=== PATIENT | female | born 1970 | race Caucasian/White ===

== ENCOUNTER → 2019-02-03 07:44 | Outpatient (CLI) | payer BC, SELFPAY ==
--- NOTE | 2019-02-03 | DI.MG.S_ITS ---
BILATERAL DIGITAL SCREENING MAMMOGRAM 3D/2D WITH CAD: 02/03/2019 CLINICAL: Routine screening. Comparison is made to exam dated: 10/28/2010 [facility]. There are scattered fibroglandular elements in both breasts. Current study was also evaluated with a Computer Aided Detection (CAD) system. No significant masses, calcifications, or other findings are seen in either breast. There has been no significant interval change. IMPRESSION: NEGATIVE There is no mammographic evidence of malignancy. A 1 year screening mammogram is recommended. This exam was interpreted at Station ID: [id number]. NOTE: For mammograms, a report in lay terms will be sent to the patient. Approximately 15% of breast malignancies will not be visualized mammographically. In the management of a palpable breast mass, a negative mammogram must not discourage biopsy of a clinically suspicious lesion. Electronically Signed By: Howard hardy/pool:02/03/2019 12:56:09 letter sent: Normal Exam ACR BI-RADS Category 1: Negative 3341F
== END ==
PROVIDERS: Family Provider Family Medicine; PCP Family Medicine; Visit Provider Family Medicine
DX: Z12.31 Encounter for screening mammogram for malignant neoplasm of breast (principal)
CPT/HCPCS: 77063; 77067

== ENCOUNTER → 2019-09-01 10:41 | Outpatient (CLI) | payer BC, SELFPAY ==
--- NOTE | 2019-09-01 | DI.RAD.S_ITS ---
PROCEDURE: XR FOOT RT MIN 3V INDICATIONS: RIGHT FOOT PAIN TECHNIQUE: 3 views of the foot were acquired. COMPARISON: None. FINDINGS: Bones: No fractures or dislocations. Prominent plantar calcaneal spur. Small Achilles enthesophyte. No suspicious bony lesions. Soft tissues: No tibiotalar joint effusion. Achilles tendon appears normal. IMPRESSION: No fracture or dislocation. Prominent calcaneal spur. Dictated by: Gian Nava M.D. on 09/01/2019 at 12:53 Approved by: Gian Nava M.D. on 09/01/2019 at 12:55
== END ==
PROVIDERS: PCP Family Medicine; Visit Provider Family Medicine
DX: M79.671 Pain in right foot (principal); M77.31 Calcaneal spur, right foot
CPT/HCPCS: 73630

== ENCOUNTER → 2020-05-05 15:19 | Outpatient (CLI) | payer BC, SELFPAY ==
[2020-05-05 16:52] LABS: Add Manual Diff / Slide Review NO; Basophils Absolute Auto 100 /uL (0-100); Eosinophils Absolute Auto 300 /uL (0-450); Eosinophils Percent Auto 2.9 % (2-4); Hemoglobin 16.2 g/dL (12.0-16.0); Lymphocytes Absolute Auto 3300 /uL (1100-4500); Lymphocytes Percent Auto 32.2 % (25-40); Mean Corpuscular HGB Conc 35.3 % (30-36); Mean Corpuscular Hemoglobin 31.3 PG (26-34); Mean Corpuscular Volume 88.9 fL (80-100); Monocytes Absolute Auto 700 /uL (0-900); Monocytes Percent Auto 6.9 % (3-14); Neutrophils Absolute Auto 5800 /uL (1500-7000); Platelet Count 313 X10^3/uL (150-400); Red Blood Cell Count 5.18 X10^6/uL (4.0-5.2); Red Cell Distribution Width 13.3 % (11.6-14.8); White Blood Cell Count 10.2 X10^3/uL (4.5-11.0)
[2020-05-05 17:18] LABS: Erythrocyte Sedimentation Rate 4 MM/HR (0-20)
[2020-05-05 17:22] LABS: Alanine Aminotransferase 23 IU/L (<35); Albumin 4.8 g/dL (3.5-5.0); Albumin Globulin Ratio 1.7 (1.0-2.8); Alkaline Phosphatase 84 U/L (38-126); Aspartate Aminotransferase 29 IU/L (14-36); BUN Creatinine Ratio 18.1 (6-22); Bilirubin Total 0.7 mg/dL (0.2-1.3); Blood Urea Nitrogen 19 mg/dL (7-17); C-Reactive Protein Quant 1.2 mg/dL (<1.0); Calcium 10.4 mg/dL (8.4-10.2); Carbon Dioxide 22 mmol/L (22-32); Chloride 104 mmol/L (98-107); Estimated Glomerular Filt Rate 55.5 mL/min (>60); Globulin 2.9 g/dL (1.7-4.1); Glucose 91 mg/dL (70-100); HEMOLYSIS < 15 (0-50); Potassium 4.3 mmol/L (3.4-5.1); Sodium 138 mmol/L (137-145); Total Protein 7.7 g/dL (6.3-8.2)
== END ==
PROVIDERS: PCP Family Medicine; Referring Provider Family Medicine; Visit Provider Family Medicine
DX: R10.9 Unspecified abdominal pain (principal)
CPT/HCPCS: 36415; 80053; 85025; 85651; 86140

== ENCOUNTER → 2021-03-14 10:56 | Outpatient (CLI) | payer BC, SELFPAY ==
--- NOTE | 2021-03-14 10:57 | DI.MG.S_ITS ---
BILATERAL DIGITAL SCREENING MAMMOGRAM 3D/2D WITH CAD: 03/14/2021 CLINICAL: Routine screening. Comparison is made to exams dated: 02/03/2019 mammogram and 10/28/2010 mammogram - [facility]. There are scattered fibroglandular elements in both breasts. Current study was also evaluated with a Computer Aided Detection (CAD) system. No significant masses, calcifications, or other findings are seen in either breast. There has been no significant interval change. IMPRESSION: NEGATIVE There is no mammographic evidence of malignancy. A 1 year screening mammogram is recommended. This exam was interpreted at Station ID: [id number]. NOTE: For mammograms, a report in lay terms will be sent to the patient. Approximately 15% of breast malignancies will not be visualized mammographically. In the management of a palpable breast mass, a negative mammogram must not discourage biopsy of a clinically suspicious lesion. Electronically Signed By: Shelby lorenz/pool:03/14/2021 19:27:25 letter sent: Normal Exam ACR BI-RADS Category 1: Negative 3341F
== END ==
PROVIDERS: PCP Family Medicine; Referring Provider Family Medicine; Visit Provider Family Medicine
DX: Z12.31 Encounter for screening mammogram for malignant neoplasm of breast (principal)
CPT/HCPCS: 77063; 77067

== ENCOUNTER 2021-04-28 16:27 | Emergency (ER) | payer BC, SELFPAY ==
[2021-04-28 16:31] VITALS: BP 149/86; PULSE 96; RESP 15; TEMP 36.4; O2SAT 94; BMI 40.0
--- NOTE | 2021-04-28 16:39 | ED.GENADULT ---
HPI - General Adult General Chief complaint: Abdominal Pain Stated complaint: sent for CT Time Seen by Provider: 04/28/21 16:30 Related Data Allergies Allergy/AdvReac Type Severity Reaction Status Date / Time STEROIDS Allergy Mild BY 4TH Uncoded 02/27/18 12:59 DAY, BECAME VERY ANGRY AND VERBAL BRAZIL NUT Allergy Unknown MOUTH Uncoded 02/27/18 12:59 ITCHES/SWELLING WALNUTS Allergy Unknown MOUTH Uncoded 02/27/18 12:59 ITCHES/SWELLING Patient History Medical History (Updated 04/28/21 @ 17:14 by Faye Gregory MD) Acid reflux History of ovarian cyst Hypertension Hypothyroidism (acquired) Surgical History History of endometrial ablation Social History Smoking Status: Unknown if ever smoked Exam Initial Vital Signs Initial Vital Signs: Vital Signs Temperature 97.6 F 04/28/21 16:31 Pulse Rate 96 H 04/28/21 16:31 Respiratory Rate 15 04/28/21 16:31 Blood Pressure 149/86 H 04/28/21 16:31 Pulse Oximetry 94 04/28/21 16:31 Course Orders Ordered: ED Orders 04/28/21 16:42 EKG-12 Lead Stat 04/28/21 17:05 Complete Blood Count AUTO DIFF Stat Comprehensive Metabolic Panel Stat Lipase Stat 04/28/21 18:03 CT abdomen pelvis w con Stat Vital Signs Vital signs: Vital Signs - 8 hr 04/28/21 16:31 Temperature 97.6 F Pulse Rate 96 H Respiratory Rate 15 Blood Pressure 149/86 H Pulse Oximetry 94 Medical Decision Making Lab Data Result diagrams: 04/28/21 17:05 04/28/21 17:05 Labs: Lab Results 04/28/21 04/28/21 Range/Units 17:05 17:05 WBC 10.3 (4.5-11.0) X10^3/uL RBC 5.18 (4.0-5.2) X10^6/uL Hgb 15.9 (12.0-16.0) g/dL Hct 46.7 H (36-46) % MCV 90.3 (80-100) fL MCH 30.8 (26-34) PG MCHC 34.1 (30-36) % RDW 13.6 (11.6-14.8) % Plt Count 320 (150-400) X10^3/uL Neut % (Auto) 60.6 (50-75) % Lymph % (Auto) 27.3 (25-40) % Sabine % (Auto) 7.7 (3-14) % Eos % (Auto) 3.2 (2-4) % Baso % (Auto) 1.2 (0-2) % Neut # (Auto) 6200 (8706-4932) /uL Lymph # (Auto) 2800 (8144-7508) /uL Sabine # (Auto) 800 (0-900) /uL Eos # (Auto) 300 (0-450) /uL Baso # (Auto) 100 (0-100) /uL Sodium 138 (137-145) mmol/L Potassium 4.0 (3.4-5.1) mmol/L Chloride 104 (98-107) mmol/L Carbon Dioxide 25 (22-32) mmol/L BUN 17 (7-17) mg/dL Creatinine 1.01 (0.52-1.04) mg/dL Estimated GFR 57.8 L (>60) mL/min BUN/Creatinine Ratio 16.8 (6-22) Glucose 101 H (70-100) mg/dL Calcium 10.1 (8.4-10.2) mg/dL Total Bilirubin 1.2 (0.2-1.3) mg/dL AST 37 H (14-36) IU/L ALT 40 H (<35) IU/L Alkaline Phosphatase 81 (38-126) U/L Total Protein 7.9 (6.3-8.2) g/dL Albumin 4.5 (3.5-5.0) g/dL Globulin 3.4 (1.7-4.1) g/dL Albumin/Globulin Ratio 1.3 (1.0-2.8) Lipase 45 (23-300) U/L
--- NOTE | 2021-04-28 16:40 | ED.GENADULT ---
HPI - General Adult General Chief complaint: Abdominal Pain Stated complaint: sent for CT Time Seen by Provider: 04/28/21 16:30 Related Data Allergies Allergy/AdvReac Type Severity Reaction Status Date / Time STEROIDS Allergy Mild BY 4TH Uncoded 02/27/18 12:59 DAY, BECAME VERY ANGRY AND VERBAL BRAZIL NUT Allergy Unknown MOUTH Uncoded 02/27/18 12:59 ITCHES/SWELLING WALNUTS Allergy Unknown MOUTH Uncoded 02/27/18 12:59 ITCHES/SWELLING Patient History Social History Smoking Status: Unknown if ever smoked
--- NOTE | 2021-04-28 17:09 | ED_ITS ---
HPI - General Adult General Chief complaint: Abdominal Pain Stated complaint: sent for CT Time Seen by Provider: 04/28/21 16:30 Source: patient Mode of arrival: Ambulatory Limitations: no limitations History of Present Illness HPI narrative: 51-year-old woman with a history of hypertension presents with right lower quadrant pain that is been intermittently present the last month, getting worse. She notes that she has had ovarian cysts previously and a right lower quadrant ?bleeding cyst? that was removed and had cause similar pain. All of these cytometry technologist issues were over 10 years ago. She notes that the pain seemed to be worse yesterday, she slept well and then when she got up this morning she was unable to stand up straight due to the pain. She was seen by her primary care physician office and abdominal exam was significant enough that it was felt that ER evaluation was appropriate. She describes no vomiting or diarrhea. She has no chest pain, dyspnea, palpitations, cough, fevers. Related Data Allergies Allergy/AdvReac Type Severity Reaction Status Date / Time STEROIDS Allergy Mild BY 4TH Uncoded 02/27/18 12:59 DAY, BECAME VERY ANGRY AND VERBAL BRAZIL NUT Allergy Unknown MOUTH Uncoded 02/27/18 12:59 ITCHES/SWELLING WALNUTS Allergy Unknown MOUTH Uncoded 02/27/18 12:59 ITCHES/SWELLING Review of Systems Review of Systems Narrative: Remainder of complete review of systems is otherwise unremarkable e xcept for that included in the HPI. Patient History Medical History (Updated 04/28/21 @ 19:04 by Faye Gregory MD) Acid reflux History of ovarian cyst Hypertension Hypothyroidism (acquired) Surgical History History of endometrial ablation Social History Smoking Status: Unknown if ever smoked Smoking Status: Unknown if ever smoked alcohol intake frequency: holidays/special occasions only Substance Use Type: does not use Exam Narrative Exam Narrative: General: Healthy appearing, in no acute distress. Able to give a complete and coherent history. Well-nourished well-developed HEENT: Moist mucous membranes, normal sclera with reactive pupils, Respiratory: Lungs are clear to auscultation, no wheezing no rales no rhonchi. Full and symmetrical air movement Cardiac: Regular rate and rhythm no murmurs no bruits Abdomen: Soft, moderate right lower quadrant tenderness without rebound or guarding good bowel tones, no flank pain Skin: Warm and dry, no rashes Neurologic: Grossly neurologically intact with no obvious asymmetries or abnormalities Extremities: No trauma, well perfused Psych: Cooperative, appropriate insight and affect Initial Vital Signs Initial Vital Signs: Vital Signs Temperature 97.6 F 04/28/21 16:31 Pulse Rate 96 H 04/28/21 16:31 Respiratory Rate 15 04/28/21 16:31 Blood Pressure 149/86 H 04/28/21 16:31 Pulse Oximetry 94 04/28/21 16:31 Course Orders Ordered: ED Orders 04/28/21 16:42 EKG-12 Lead Stat 04/28/21 17:05 Complete Blood Count AUTO DIFF Stat Comprehensive Metabolic Panel Stat Lipase Stat 04/28/21 18:03 CT abdomen pelvis w con Stat Vital Signs Vital signs: Vital Signs - 8 hr 04/28/21 16:31 Temperature 97.6 F Pulse Rate 96 H Respiratory Rate 15 Blood Pressure 149/86 H Pulse Oximetry 94 Medical Decision Making Medical Records Medical records reviewed: Yes I reviewed the patient's medical records. Lab Data Lab results reviewed: Yes I reviewed the patient's lab results. Result diagrams: 04/28/21 17:05 04/28/21 17:05 Labs: Lab Results 04/28/21 04/28/21 Range/Units 17:05 17:05 WBC 10.3 (4.5-11.0) X10^3/uL RBC 5.18 (4.0-5.2) X10^6/uL Hgb 15.9 (12.0-16.0) g/dL Hct 46.7 H (36-46) % MCV 90.3 (80-100) fL MCH 30.8 (26-34) PG MCHC 34.1 (30-36) % RDW 13.6 (11.6-14.8) % Plt Count 320 (150-400) X10^3/uL Neut % (Auto) 60.6 (50-75) % Lymph % (Auto) 27.3 (25-40) % Winn % (Auto) 7.7 (3-14) % Eos % (Auto) 3.2 (2-4) % Baso % (Auto) 1.2 (0-2) % Neut # (Auto) 6200 (1237-9597) /uL Lymph # (Auto) 2800 (9864-9717) /uL Winn # (Auto) 800 (0-900) /uL Eos # (Auto) 300 (0-450) /uL Baso # (Auto) 100 (0-100) /uL Sodium 138 (137-145) mmol/L Potassium 4.0 (3.4-5.1) mmol/L Chloride 104 (98-107) mmol/L Carbon Dioxide 25 (22-32) mmol/L BUN 17 (7-17) mg/dL Creatinine 1.01 (0.52-1.04) mg/dL Estimated GFR 57.8 L (>60) mL/min BUN/Creatinine Ratio 16.8 (6-22) Glucose 101 H (70-100) mg/dL Calcium 10.1 (8.4-10.2) mg/dL Total Bilirubin 1.2 (0.2-1.3) mg/dL AST 37 H (14-36) IU/L ALT 40 H (<35) IU/L Alkaline Phosphatase 81 (38-126) U/L Total Protein 7.9 (6.3-8.2) g/dL Albumin 4.5 (3.5-5.0) g/dL Globulin 3.4 (1.7-4.1) g/dL Albumin/Globulin Ratio 1.3 (1.0-2.8) Lipase 45 (23-300) U/L Imaging Data CT scan - abdomen/pelvis: Radiologist's Impression: FINDINGS: Lower thorax: The lung bases are clear. Heart size normal. No hiatal hernia. Liver: The liver is diffusely decreased in attenuation without focal mass lesion. Biliary system: No calcified cholelithiasis or pericholecystic inflammation. No intra or extrahepatic bile duct dilatation. Pancreas: Unremarkable without mass or inflammation evident. Spleen: Normal in size and density. Adrenals: Normal morphology and density. Reproductive system: Unremarkable as visualized. Urinary system: Normal renal size and attenuation. Small subcentimeter hypoden se in the left renal cortex likely reflects simple cyst. No renal calculi, hydronephrosis, or solid mass present. Urinary bladder unremarkable. Gastrointestinal system: The bowel appears unremarkable with no evidence of bowel obstruction or inflammation. The stomach appears unremarkable. Appendix: Normal appendix identified. No evidence of appendicitis. Peritoneal spaces: No mesenteric or retroperitoneal adenopathy. No free air. No free fluid. Vasculature: The IVC, aorta and iliac vasculature are unremarkable. Musculoskeletal: Normal bone mineralization. No acute fractures. Abdominal wall intact without evidence of ventral or inguinal hernias. IMPRESSION: 1. No acute CT abdomen or pelvic findings. Normal appendix. 2. Hepatic fatty infiltration Dictated by: Zen Dupree M.D. on 04/28/2021 at 17:31 ECG Data Attestation: I personally reviewed and interpreted this ECG as follows: Interpretation: Sinus rhythm at a rate of 91 Normal axis, normal intervals No acute ischemic changes MDM Narrative Medical decision making narrative: 51-year-old woman presents with a month of increasing abdominal pain and over the last week has gotten worse and is now localizing to the right lower quadrant. Labs are reassuring and CT scan of the abdomen does not reveal any acute findings to suggest an etiology for her pain. Specifically she does not have appendicitis, diverticulitis, pancreatitis, acute cholecystitis, pyelonephritis or any other source of infection. Review of the scan itself does not suggest significant stool loading for constipation to be a cause of her pain either. At this point she does not have a surgical abdomen and she is safe for home discharge. Will ask for follow-up with her primary care physician Discharge Plan Departure Patient Disposition: Home Clinical Impression: Abdominal pain Qualifiers: Abdominal location: right lower quadrant Qualified Code(s): R10.31 - Right lower quadrant pain Instructions: DI for Abdominal Pain-Adult Activity Restrictions/Additional Instructions: Thank you for coming in today Your lab work was very reassuring. There is no evidence of infection, kidney failure or liver issues. CT scan of your abdomen was equally reassuring. You do not have appendicitis nor any other surgical finding that would require consultation her hospitalization today. I would encourage you to schedule a follow-up appointment with your primary care physician to continue investigating what might be causing this intermittent abdominal pain. If things worsen significantly, please feel free to return to the ER. Referrals: Gustavo Barbour MD [Primary Care Provider] -
[2021-04-28 17:17] LABS: Add Manual Diff / Slide Review NO; Basophils Absolute Auto 100 /uL (0-100); Basophils Percent Auto 1.2 % (0-2); Eosinophils Absolute Auto 300 /uL (0-450); Eosinophils Percent Auto 3.2 % (2-4); Hematocrit 46.7 % (36-46); Hemoglobin 15.9 g/dL (12.0-16.0); Lymphocytes Absolute Auto 2800 /uL (1100-4500); Lymphocytes Percent Auto 27.3 % (25-40); Mean Corpuscular HGB Conc 34.1 % (30-36); Mean Corpuscular Hemoglobin 30.8 PG (26-34); Mean Corpuscular Volume 90.3 fL (80-100); Monocytes Absolute Auto 800 /uL (0-900); Monocytes Percent Auto 7.7 % (3-14); Neutrophils Absolute Auto 6200 /uL (1500-7000); Neutrophils Percent Auto 60.6 % (50-75); Platelet Count 320 X10^3/uL (150-400); Red Blood Cell Count 5.18 X10^6/uL (4.0-5.2); Red Cell Distribution Width 13.6 % (11.6-14.8); White Blood Cell Count 10.3 X10^3/uL (4.5-11.0)
[2021-04-28 17:30] LABS: Alanine Aminotransferase 40 IU/L (<35); Albumin 4.5 g/dL (3.5-5.0); Albumin Globulin Ratio 1.3 (1.0-2.8); Alkaline Phosphatase 81 U/L (38-126); Aspartate Aminotransferase 37 IU/L (14-36); BUN Creatinine Ratio 16.8 (6-22); Bilirubin Total 1.2 mg/dL (0.2-1.3); Blood Urea Nitrogen 17 mg/dL (7-17); Calcium 10.1 mg/dL (8.4-10.2); Carbon Dioxide 25 mmol/L (22-32); Chloride 104 mmol/L (98-107); Estimated Glomerular Filt Rate 57.8 mL/min (>60); Globulin 3.4 g/dL (1.7-4.1); Glucose 101 mg/dL (70-100); HEMOLYSIS < 15 (0-50); Lipase 45 U/L (23-300); Sodium 138 mmol/L (137-145); Total Protein 7.9 g/dL (6.3-8.2)
--- NOTE | 2021-04-28 18:03 | DI.CT.S_ITS ---
PROCEDURE: CT ABDOMEN PELVIS W CON INDICATIONS: RLQ increasing over 1 week with general pain for 1 month TECHNIQUE: After the administration of intravenous contrast, 5 mm thick sections acquired from the diaphragm to the symphysis. 5 mm coronal and sagittal reformats were acquired. For radiation dose reduction, the following was used: automated exposure control, adjustment of mA and/or kV according to patient size. COMPARISON: None. FINDINGS: Lower thorax: The lung bases are clear. Heart size normal. No hiatal hernia. Liver: The liver is diffusely decreased in attenuation without focal mass lesion. Biliary system: No calcified cholelithiasis or pericholecystic inflammation. No intra or extrahepatic bile duct dilatation. Pancreas: Unremarkable without mass or inflammation evident. Spleen: Normal in size and density. Adrenals: Normal morphology and density. Reproductive system: Unremarkable as visualized. Urinary system: Normal renal size and attenuation. Small subcentimeter hypodense in the left renal cortex likely reflects simple cyst. No renal calculi, hydronephrosis, or solid mass present. Urinary bladder unremarkable. Gastrointestinal system: The bowel appears unremarkable with no evidence of bowel obstruction or inflammation. The stomach appears unremarkable. Appendix: Normal appendix identified. No evidence of appendicitis. Peritoneal spaces: No mesenteric or retroperitoneal adenopathy. No free air. No free fluid. Vasculature: The IVC, aorta and iliac vasculature are unremarkable. Musculoskeletal: Normal bone mineralization. No acute fractures. Abdominal wall intact without evidence of ventral or inguinal hernias. IMPRESSION: 1. No acute CT abdomen or pelvic findings. Normal appendix. 2. Hepatic fatty infiltration Dictated by: Zen Dupree M.D. on 04/28/2021 at 17:31 Approved by: Zen Dupree M.D. on 04/28/2021 at 17:40
[2021-04-28 19:18] VITALS: BP 121/69; PULSE 85; RESP 18; O2SAT 96
== END 2021-04-28 19:19 | disposition home or self-care (01) ==
PROVIDERS: Emergency Provider Emergency Medicine; PCP Family Medicine
DX: R10.31 Right lower quadrant pain (principal)
CPT/HCPCS: 36415; 74177; 80053; 83690; 85025; 93005; 99284; Q9967

== ENCOUNTER → 2021-06-21 13:14 | Outpatient (CLI) | payer BC, SELFPAY ==
--- NOTE | 2021-06-21 13:18 | DI.RAD.S_ITS ---
PROCEDURE: XR ANKLE RT MIN 3V INDICATIONS: hurt TECHNIQUE: 3 views of the ankle were acquired. COMPARISON: None. FINDINGS: Bones: No fractures or dislocations. Ankle mortise is normally aligned. No suspicious bony lesions. Soft tissues: No tibiotalar joint effusion. Achilles tendon appears normal. IMPRESSION: No acute fracture. No osseous lesion. If symptoms and/or clinical suspicion for pathology persist, further assessment with repeat, or advanced imaging (e.g., CT, MRI, or bone scan) may be helpful for further assessment. Dictated by: Brunilda Pond M.D. on 06/21/2021 at 13:36 Approved by: Brunilda Pond M.D. on 06/21/2021 at 13:38
--- NOTE | 2021-06-21 13:18 | DI.RAD.S_ITS ---
PROCEDURE: XR FOOT RT MIN 3V INDICATIONS: swollen foot TECHNIQUE: 3 views of the foot were acquired. COMPARISON: [facility], , XR FOOT RT MIN 3V, 09/01/2019, 11:55. FINDINGS: Bones: No fractures or dislocations. No suspicious bony lesions. Soft tissues: No tibiotalar joint effusion. Achilles tendon appears normal. IMPRESSION: No acute fracture. No osseous lesion. If symptoms and/or clinical suspicion for pathology persist, further assessment with repeat, or advanced imaging (e.g., CT, MRI, or bone scan) may be helpful for further assessment. Dictated by: Brunilda Pond M.D. on 06/21/2021 at 13:38 Approved by: Brunilda Pond M.D. on 06/21/2021 at 13:38
== END ==
PROVIDERS: PCP Family Medicine; Referring Provider Physician Assistant; Visit Provider Physician Assistant
DX: M25.471 Effusion, right ankle (principal); M79.89 Other specified soft tissue disorders
CPT/HCPCS: 73610; 73630

== ENCOUNTER → 2021-07-14 06:37 | Outpatient (CLI) | payer BC, SELFPAY ==
--- NOTE | 2021-07-14 | DI.MRI.S_ITS ---
PROCEDURE: MR ANKLE RT WO CON INDICATIONS: Pain in right ankle and joints of right foot TECHNIQUE: Noncontrast sagittal T1 spin echo and T2 fast spin echo with fat saturation, axial proton density fast spin echo and T2 fast spin echo with fat saturation, coronal T1 spin echo and T2 fast spin echo with fat saturation through the ankle/hindfoot. COMPARISON: None. FINDINGS: Bones and joints: Bones: No marrow contusions or fractures. Scattered degenerative subchondral sclerosis and spurring. Coalitions: No hindfoot coalitions. Talar dome: No osteochondral injuries of the talar dome. Other: Large tibiotalar and subtalar joint effusion. Medial structures: Posterior tibialis: Intact. [id number] tenosynovitis. Flexor digitorum longus: Intact. Hnsk-pr-[id number] tenosynovitis. Flexor hallucis longus: Intact. Posterior tibial neurovascular bundle: Normal. Deltoid ligament complex: Intact. Spring ligament: Intact. Lateral structures: Anterior talofibular ligament: Mild thickening suggestive of age-indeterminate low-grade sprain. Calcaneofibular ligament: Not well seen raising possibility of age-indeterminate sprain Posterior talofibular ligament: Intact. Anterior tibiofibular ligament: Intact. Posterior tibiofibular ligament: Intact. Intermalleolar ligament: Intact. Tibiofibular syndesmosis: Normal. Peroneus longus: Intact. Moderate tenosynovitis. Peroneus brevis: Intact. Moderate tenosynovitis. Bony peroneal tubercle and retrotrochlear prominence: Normal. Sinus tarsi: Normal. Anterior structures: Tibialis anterior: Intact. Extensor hallucis longus: Intact. Extensor digitorum longus: Mild tenosynovitis otherwise intact. Dorsal talonavicular ligament: Thickened appearance in keeping with degeneration/sprain. Posterior and plantar structures: Achilles tendon: Grossly intact appearance although there is adjacent fluid/edema of unclear etiology although raises the possibility of low-grade strain. Plantar fascia: Moderate to severe medial band plantar fasciitis with associated calcaneal spurring Muscles: No abductor digiti quinti muscle atrophy to suggest Costa neuropathy. Possible incidental plantar subcutaneous lipoma measuring 5 mm seen on image 1/8. IMPRESSION: Moderate to severe medial band plantar fasciitis. Age-indeterminate sprain of the anterior talofibular and calcaneofibular ligament. Large tibiotalar joint effusion. Diffuse tenosynovitis as above. Dictated by: Jorge Astudillo M.D. on 07/14/2021 at 9:18 Approved by: Jorge Astudillo M.D. on 07/14/2021 at 9:50
== END ==
PROVIDERS: PCP Family Medicine; Referring Provider Family Medicine; Visit Provider Family Medicine
DX: M25.571 Pain in right ankle and joints of right foot (principal); M72.2 Plantar fascial fibromatosis; S93.411A Sprain of calcaneofibular ligament of right ankle, initial encounter; S93.491A Sprain of other ligament of right ankle, initial encounter; M25.471 Effusion, right ankle; M65.871 Other synovitis and tenosynovitis, right ankle and foot
CPT/HCPCS: 73721

== ENCOUNTER → 2024-02-04 13:25 | Outpatient (CLI) | payer BC, SELFPAY ==
--- NOTE | 2024-02-04 13:26 | DI.RAD.S_ITS ---
PROCEDURE: XR KNEE RT 3V INDICATIONS: right knee cellulitis, no trauma TECHNIQUE: 3 views of the knee were acquired. COMPARISON: None. FINDINGS: Bones: No fractures or dislocations. No suspicious bony lesions. Soft tissues: No joint effusion. No suspicious soft tissue calcifications. IMPRESSION: No acute bony abnormality or significant effusion. Dictated by: Cait Ricci M.D. on 02/04/2024 at 14:31 Approved by: Cait Ricci M.D. on 02/04/2024 at 14:31
== END ==
PROVIDERS: PCP Family Medicine; Referring Provider Physician Assistant Medical; Visit Provider Physician Assistant Medical
DX: L03.115 Cellulitis of right lower limb (principal)
CPT/HCPCS: 73562

== ENCOUNTER → 2024-07-15 07:30 | Outpatient (CLI) | payer BC, SELFPAY | PROVIDERS: PCP Family Medicine; Referring Provider Physician Assistant Medical; Visit Provider Physician Assistant Medical | DX: R30.0 Dysuria (principal); N39.0 Urinary tract infection, site not specified | CPT/HCPCS: 87077; 87086 ==

== ENCOUNTER → 2024-08-04 17:12 | Outpatient (CLI) | payer BC, SELFPAY ==
--- NOTE | 2024-08-04 | DI.MG.S_ITS ---
BILATERAL DIGITAL SCREENING MAMMOGRAM 3D/2D WITH CAD: 08/04/2024 CLINICAL: Routine screening. Comparison is made to exams dated: 03/14/2021 mammogram, 02/03/2019 mammogram, and 10/28/2010 mammogram - [facility]. There are scattered areas of fibroglandular density (category b / 25%-50% glandular tissue). Current study was also evaluated with a Computer Aided Detection (CAD) system. No significant masses, calcifications, or other findings are seen in either breast. There has been no significant interval change. IMPRESSION: NEGATIVE There is no mammographic evidence of malignancy. A 1 year screening mammogram is recommended. Based on the Tyrer Cuzick model (a risk assessment model) the patient's lifetime risk is 5.5% and her 10 year risk is 1.5%. According to the ACR, ACS, and NCCN guidelines, an annual breast MRI exam along with mammogram is recommended if the patient's lifetime risk is 20% or greater. This exam was interpreted at Station ID: [id number]. NOTE: For mammograms, a report in lay terms will be sent to the patient. Approximately 15% of breast malignancies will not be visualized mammographically. In the management of a palpable breast mass, a negative mammogram must not discourage biopsy of a clinically suspicious lesion. Electronically Signed By: Shelby lorenz/pool:08/07/2024 08:48:46 letter sent: Normal Exam ACR BI-RADS Category 1: Negative 3341F
== END ==
LOC: MAMMO 17:12
PROVIDERS: PCP Family Medicine; Referring Provider Family Medicine; Visit Provider Family Medicine
DX: Z12.31 Encounter for screening mammogram for malignant neoplasm of breast (principal)
CPT/HCPCS: 77063; 77067

== ENCOUNTER 2025-05-19 07:07 | Emergency (ER) | payer BC, SELFPAY ==
[2025-05-19 07:08] VITALS: BP 131/82; PULSE 79; RESP 13; TEMP 37.1; O2SAT 98; BMI 38.7
--- NOTE | 2025-05-19 07:15 | DI.RAD.S_ITS ---
PROCEDURE: XR ANKLE RT MIN 3V INDICATIONS: ankle pain TECHNIQUE: 3 views of the ankle were acquired. COMPARISON: [facility], CR, XR ANKLE RT MIN 3V, 06/21/2021, 13:14. FINDINGS: Bones: No fractures or dislocations. Ankle mortise is normally aligned. No suspicious bony lesions. Prominent plantar calcaneal spur. Soft tissues: No tibiotalar joint effusion. Achilles tendon appears normal. IMPRESSION: No acute bony abnormality or significant effusion. Dictated by: Chase Watts M.D. on 05/19/2025 at 8:09 in Chase Watts M.D. on 05/19/2025 at 8:10 Approved by:
--- NOTE | 2025-05-19 07:31 | ED.EXTPRO ---
HPI - Extremity Problem General Chief complaint: Extremity Problem,Nontraumatic Stated complaint: right leg pain x 4 days Time Seen by Provider: 05/19/25 07:30 Source: patient, RN notes reviewed and old records reviewed Mode of arrival: Wheelchair Limitations: no limitations History of Present Illness HPI Narrative: 51-year-old female with a history of hypertension, hypothyroidism who presents with a complaint of right ankle and leg pain for 4 days. Patient does not recall any injury. Notes she did not some long-distance travel with driving proximally 500 miles. States she has a bruise on her upper leg for more she bumped a trailer hitch but denies any other trauma or injuries. States she started having pain in her ankle cramping has been over the dorsum but wrapping around underneath and behind and radiates up her leg. She denies any warmth, erythema or other skin changes. Denies any rashes. Denies any swelling. Denies any ecchymosis. Patient notes it is painful to weightbear. She denies any numbness tingling or weakness. She notes flexion-extension of the ankle itself is painful as well. She was had gout in the past which she was note was not her 1st metatarsals but states this feels very different in his a different location. She did try acetaminophen and a lidocaine patch yesterday which she found helpful. States home medications are clonidine and levothyroxine. Denies any allergies to medications but notes she does not tolerate steroids well. Denies prior surgeries to the ankle or foot. No active tobacco use. Related Data Home Medications ?Medication ?Instructions ?Recorded ?Confirmed clonidine 0.2 mg/24 hr weekly patch transdermal 02/04/24 02/04/24 transdermal patch levothyroxine 75 mcg tablet 75 mcg PO DAILY 02/04/24 02/04/24 semaglutide 1 mg/dose (4 mg/3 mL) 1 mg SUBCUT QWEEK 07/15/24 07/15/24 subcutaneous pen injector (Ozempic) Previous Rx's ?Medication ?Instructions ?Recorded cephalexin 500 mg capsule 500 mg PO TID #21 caps 07/15/24 phenazopyridine 200 mg tablet 200 mg PO TID PRN pain 6 doses #6 07/15/24 (Pyridium) tabs gabapentin 100 mg capsule 100 mg PO TID #30 caps 05/19/25 Allergies Allergy/AdvReac Type Severity Reaction Status Date / Time STEROIDS Allergy Mild BY 4TH Uncoded 05/19/25 07:15 DAY, BECAME VERY ANGRY AND VERBAL BRAZIL NUT Allergy Unknown MOUTH Uncoded 05/19/25 07:15 ITCHES/SWELLING WALNUTS Allergy Unknown MOUTH Uncoded 05/19/25 07:15 ITCHES/SWELLING Review of Systems Review of Systems ROS Unobtainable: All systems reviewed & are unremarkable except as noted in HPI and below Patient History Medical History Acid reflux Hypothyroidism (acquired) History of ovarian cyst Hypertension Surgical History History of endometrial ablation Social History Smoking Status: Unknown if ever smoked Smoking Status: Unknown if ever smoked alcohol intake frequency: holidays/special occasions only Exam Narrative Exam Narrative: GENERAL: Alert and oriented x three, female in mild distress HEENT: Head normocephalic, atraumatic, EOMI, pupils reactive, face symmetric, moist mucous membranes NECK: Supple, full range of motion CARDIOVASCULAR: Regular rate and rhythm without murmurs, rubs or gallops. RESPIRATORY: Breath sounds equal bilaterally, no wheezes rales or rhonchi. ABDOMEN: Soft, nontender. Normoactive bowel sounds all 4 quadrants. No guarding or rebound, rigidity, no mass EXTREMITIES: Normal range of motion, no clubbing or edema. Neurovascularly intact. No bony tenderness on exam of the right lower extremity from the thigh, knee, lower extremity, foot and ankle or toes. Patient has not warmth, no erythema no ecchymosis no lacerations or cuts. There was no swelling. Patient does not have any skin changes overall. Does have some discomfort with joint laxity testing of the ankle. But it was nontender to palpation. 2+ dorsalis pedis. Negative calf squeeze. NEUROLOGICAL: Cranial nerves II through XII grossly intact. Moving all extremities SKIN: Warm, dry, no petechiae, no rashes or lesions. Initial Vital Signs Initial Vital Signs: Vital Signs Temperature 98.7 F 05/19/25 07:08 Pulse Rate 79 05/19/25 07:08 Respiratory Rate 13 05/19/25 07:08 Blood Pressure 131/82 05/19/25 07:08 Pulse Oximetry 98 05/19/25 07:08 Oxygen Delivery Method Room Air 05/19/25 07:08 Course Orders Ordered: ED Orders 05/19/25 07:15 XR ankle RT min 3V Stat 05/19/25 07:50 perip venous low extrem rt Stat Discontinued Medications Acetaminophen (Acetaminophen 325 Mg Tablet) 975 mg PO NOW ONE Stop: 05/19/25 07:50 Last Admin: 05/19/25 07:58 Dose: 975 mg Documented By: MICHELLE Lidocaine (Lidocaine 5% Patch) 1 each TOP DAILY ONE Stop: 05/19/25 07:51 Last Admin: 05/19/25 07:57 Dose: 1 each Documented By: MICHELLE Vital Signs Vital signs: Vital Signs - 8 hr 05/19/25 07:08 05/19/25 09:22 05/19/25 09:23 Temperature 98.7 F Pulse Rate 79 75 Respiratory Rate 13 Blood Pressure 131/82 166/72 H Pulse Oximetry 98 97 Oxygen Delivery Method Room Air MDM - Extremity (Nontraumatic) MDM Narrative Medical decision making narrative: Right ankle x-ray is negative for acute bony abnormality or significant effusion. No fractures or dislocation, ankle mortise is normally aligned. No suspicious bony lesions. Prominent plantar calcaneal spur. No tibiotalar joint effusion. Achilles tendon appears normal. Right ankle ultrasound-prelim is negative. Formal read negative right lower extremity duplex venous ultrasound for DVT. Patient had acetaminophen and lidocaine patch. Patient states has been minimally helpful for pain. 55-year-old female nontraumatic right ankle pain no skin changes patient does note a history of gout but states feels very different with different presentation physically and symptomatically. Patient does note some long-distance travel recently so ankle x-ray as well as ultrasound was obtained. Read findings from today. Patient has crutches at home weightbear as tolerated discussed return precautions gout is still on differential although less likely as she has not other skin changes in his more localized to the ankle not her toes or similar locations as the past. We will give a short term script for gabapentin as patient states it feels a little bit like nerve pain down into her leg. Discharge Plan Departure Patient Disposition: Home Clinical Impression: Ankle pain, right Instructions: DI for Ankle Pain Activity Restrictions/Additional Instructions: Follow up with your physician for recheck if your symptoms are not improving. Continue with the acetaminophen up to a 1000 mg every 6 hours as needed. Can also take ibuprofen up to 600 mg every 6 hours as needed. You can use lidocaine patches as needed. If he would like a prescription for gabapentin is included, you can take 1 tablet every 8 hours. This medication tends to be more helpful if you are taking it regularly. Use crutches as needed Elevated affected body part to decrease swelling. OK to use ice pack on the affected body part. Use for 15-20 minutes each time, for 5-6x per day. If you develop worsening pain, numbness, tingling, discoloration of the affected body part, and either see your doctor for an urgent re-assessment, or return to the Emergency Department. Return to the Emergency Department for any new or worsening symptoms. Prescriptions: New gabapentin 100 mg capsule 100 mg PO TID Qty: 30 0RF No Action Ozempic 1 mg/dose (4 mg/3 mL) pen injector 1 mg SUBCUT QWEEK cephalexin 500 mg capsule 500 mg PO TID Qty: 21 0RF phenazopyridine [Pyridium] 200 mg tablet 200 mg PO TID PRN (Reason: pain) Qty: 6 0RF clonidine 0.2 mg/24 hr patch weekly transdermal levothyroxine 75 mcg tablet 75 mcg PO DAILY Referrals: Gustavo Barbour MD [Primary Care Provider, [facility]] Stand Alone Forms: Patient Portal/API
--- NOTE | 2025-05-19 07:50 | DI.US.S_ITS ---
PROCEDURE: US PERIPH VENOUS LOW EXTREM RT INDICATIONS: R ankle pain, radiates up leg, recent travel TECHNIQUE: Real-time imaging, as well as color and pulse Doppler interrogation, were performed of the lower extremity deep veins from the inguinal ligament to the popliteal fossa, with documentation of the visualized calf veins. COMPARISON: None. FINDINGS: The common femoral, femoral, popliteal, and the visualized calf veins are normally compressible, and free of intraluminal thrombus. Color and pulse Doppler demonstrate normal phasic intraluminal flow. There is normal augmentation response to distal compression maneuver. IMPRESSION: Negative right lower extremity duplex venous ultrasound for DVT. Dictated by: Chase Watts M.D. on 05/19/2025 at 9:13 Approved by: Chase Watts M.D. on 05/19/2025 at 9:17
[2025-05-19] MEDS: LIDOCAINE 5% PATCH 1 EACH TOP (07:57)
[2025-05-19] MEDS: ACETAMINOPHEN 325 MG TABLET 975 MG PO (07:58)
--- NOTE | 2025-05-19 08:05 | PC.NURSE ---
Pt reports she was in the car for over 500 miles on Sunday. States she has no history of blood clots or diabetes. States the pain started that day and has progressed; stating it has not gotten better. Pt states the pain has extended up to her right hip. Pt states the pain does not originate at hip. Pt states she feels right foot feels warmer than left; to RN temperature of both extremities feels the same.
[2025-05-19 09:22] VITALS: PULSE 75; O2SAT 97
[2025-05-19 09:23] VITALS: BP 166/72
[2025-05-19 09:42] VITALS: BP 166/87; PULSE 70; RESP 18; O2SAT 100
== END 2025-05-19 09:42 | disposition home or self-care (01) ==
PROVIDERS: Emergency Provider Emergency Medicine; PCP Family Medicine
DX: M25.571 Pain in right ankle and joints of right foot (principal)
CPT/HCPCS: 73610; 93971; 99283

== ENCOUNTER → 2025-08-27 17:37 | Outpatient (CLI) | payer BC, SELFPAY ==
--- NOTE | 2025-08-27 17:38 | DI.MG.S_ITS ---
MM screening mammo BI: 08/27/2025. BI-RADS: 1 CLINICAL: 55-year old female for bilateral screening mammogram. Tyrer-Cuzick lifetime risk of 8.2%. No personal or first-degree family history of breast cancer. PRIOR EXAMS 08/04/2024, 03/14/2021, 02/03/2019. MAMMOGRAPHY TECHNIQUE: 2D and 3D (tomosynthesis) digital mammographic views obtained, with additional images as needed for full coverage. Current study was also evaluated with a Computer Aided Detection (CAD) system. DENSITY B. There are scattered areas of fibroglandular density. MAMMOGRAPHY FINDINGS Bilateral: No suspicious mass, asymmetry, microcalcification, or other abnormality seen. IMPRESSION: * No evidence of malignancy. RECOMMENDATIONS Bilateral * Annual screening mammography. OVERALL ASSESSMENT CATEGORY BI-RADS-1: Negative. The [employer] recommends annual screening mammography beginning at age 40 for women with average risk of breast cancer. ELECTRONICALLY SIGNED: Howard Govea M.D. on 08/28/2025 at 07:17:46 AM PT Interpreting Station ID: [id number]
== END ==
LOC: MAMMO 17:37
PROVIDERS: PCP Family Medicine; Referring Provider Family Medicine; Visit Provider Family Medicine
DX: Z12.31 Encounter for screening mammogram for malignant neoplasm of breast (principal)
CPT/HCPCS: 77063; 77067

== ENCOUNTER → 2025-09-07 15:39 | Outpatient (CLI) | payer BC, SELFPAY ==
--- NOTE | 2025-09-07 15:42 | DI.RAD.S_ITS ---
PROCEDURE: XR LUMBAR SPINE 2-3V INDICATIONS: BACK PAIN TECHNIQUE: 3 views of the lumbar spine were acquired. COMPARISON: None. FINDINGS: Bones: 5 [id number] vertebrae are present. Trace levoscoliosis has its apex about the L3 vertebral body. There is otherwise normal bony alignment. L5-S1 disc height loss with adjacent endplate sclerosis and mild multilevel anterior osteophytosis. No vertebral body compression fractures. No suspicious bony lesions. Soft tissues: Overlying bowel gas pattern is normal. No suspicious soft tissue calcifications. IMPRESSION: Degenerative change of the lumbar spine without evidence of acute bony abnormality. Dictated by: Sekou Stapleton M.D. on 09/08/2025 at 12:13 Approved by: Sekou Stapleton M.D. on 09/08/2025 at 12:16
== END ==
LOC: RAD 15:41
PROVIDERS: PCP Family Medicine; Referring Provider Family Medicine; Visit Provider Family Medicine
DX: M54.50 Low back pain, unspecified (principal); R10.A0 Flank pain, unspecified side; M25.78 Osteophyte, vertebrae
CPT/HCPCS: 72100